=== PATIENT | male | born 1940 | race African-American/Black ===

== ENCOUNTER 2023-03-23 12:30 | Outpatient (CLI) | payer MEDICARE | END 2023-03-23 12:31 | disposition home or self-care (01) | LOC: LABBT 12:30 | PROVIDERS: ATTEND Orthopaedic Surgery | DX: Z01.818 Encounter for other preprocedural examination (principal); M17.11 Unilateral primary osteoarthritis, right knee | CPT/HCPCS: 71046; 93005; 93010 ==

== ENCOUNTER 2023-03-29 06:41 | Observation (INO) | payer MEDICARE ==
[2023-03-23 13:27] VITALS: BMI 28.8
[2023-03-23 14:22] LABS: Bilirubin Neg (Negative); Blood, Urine 10 (Negative); Clarity Clear (Clear); Glucose, Urine (Dipstick) Normal (Negative); Ketone, Urine Negative (Negative); Leukocyte Negative (Negative); Nitrite Negative (Negative); Protein, Urine (Dipstick) Negative (Neg-Trace); Specific Gravity, Urine 1.015 (1.005-1.030); Urobilinogen Normal mg/dL (Less than 2)
[2023-03-23 14:26] LABS: #Eosinphils 0.5 10x3/uL (0.0-0.5); #Monocytes 0.6 10x3/uL (0.0-1.1); #Neutrophils 3.9 10x3/uL (1.5-8.4); %Basophils 0.7 % (0.0-2.0); %Eosinophils 9.2 % (0.0-6.0); %Lymphocytes 12.3 % (18.0-47.0); %Monocytes 10.2 % (0.0-10.0); %Neutrophils 67.4 % (40.0-75.0); Hematocrit 42.8 % (38.8-50.0); Hemoglobin 14.1 g/dL (13.5-17.5); Mean Corpuscular HGB CONC 32.9 g/dL (32.0-36.0); Mean Corpuscular Hemoglobin 31.2 pg (27.0-33.0); Mean Corpuscular Volume 94.7 fl (81.2-95.1); Mean Platelet Volume 11.8 fl (7.4-10.4); Platelet Count 190 10x3/uL (150-450); RBC Distribution Width 12.6 % (11.5-14.5); Red Blood Cell (RBC) Count 4.52 10x6/uL (4.32-5.72); White Blood Cell (WBC) Count 5.8 10x3/uL (3.5-10.5)
[2023-03-23 14:49] LABS: Prothrombin Time 10.3 sec (9.5-12.1)
[2023-03-23 14:51] LABS: Anion Gap 13 mmol/L (10-20); BUN (Urea Nitrogen) 22 mg/dL (8.4-25.7); Calc. Creatinine Clearance 0 mL/min (70-130); Calcium 9.3 mg/dL (7.8-10.44); Carbon Dioxide 29 mmol/L (23-31); Chloride 102 mmol/L (98-107); Estimated GFR 57; Glucose 107 mg/dL (83-110); Potassium 4.2 mmol/L (3.5-5.1); Sodium 140 mmol/L (136-145)
[2023-03-29] MEDS ORDERED: Vancomycin (BATCH) 1.5 GM/300 ML BAG ONE (07:47)
[2023-03-29] MEDS ORDERED: Sodium Chloride 0.9% 100 ML ONE ×2 (07:47→09:18)
[2023-03-29] MEDS ORDERED: Tranexamic Acid 1,000 MG/10 ML VIAL ONE (07:47)
[2023-03-29] MEDS ORDERED: fentaNYL 50 mcg/mL 1 mL Vial ONE ×3 (08:51→12:24)
[2023-03-29] MEDS ORDERED: Midazolam HCl 2 mg/2 ml Vial ONE (08:52)
[2023-03-29] MEDS ORDERED: Bupivacaine PF 0.5% 30 ML VIAL ONE (08:52)
[2023-03-29] MEDS ORDERED: fentaNYL 50 mcg/mL 1 mL Vial SLOW IVP PRN (09:04)
[2023-03-29] MEDS ORDERED: HYDROcodone/Acetaminophen 10/325 mg Tablet PO PRN ×2 (09:15)
[2023-03-29] MEDS ORDERED: Ropivacaine 0.2% 550 ML 550 ML NERVE BLCK SCH (09:15)
[2023-03-29] MEDS ORDERED: Ondansetron PF 4 MG/2 ML Vial IVP PRN ×2 (09:15→10:00)
[2023-03-29] MEDS ORDERED: Promethazine HCl 25 MG/ML VIAL IM PRN ×3 (09:15→11:32)
[2023-03-29] MEDS ORDERED: Zolpidem Tartrate 5 MG TAB PO PRN ×2 (09:15→10:00)
[2023-03-29] MEDS ORDERED: traMADol HCl 50 MG TAB PO PRN ×2 (09:15)
[2023-03-29] MEDS ORDERED: CEFAZOLIN 2 GM VIAL ONE (09:18)
[2023-03-29] MEDS ORDERED: Bupivacaine 0.25% HCL 30 ML VIAL ONE (09:18)
[2023-03-29] MEDS ORDERED: PROPOFOL 20 ML ONE (09:29)
[2023-03-29] MEDS ORDERED: Dexamethasone 4 mg/ml Vial ONE (09:30)
[2023-03-29] MEDS ORDERED: Ondansetron PF 4 MG/2 ML Vial ONE ×2 (09:30→09:48)
[2023-03-29] MEDS ORDERED: Lidocaine 1% PF 5 ML VIAL ONE ×2 (09:30→09:48)
[2023-03-29] MEDS ORDERED: Bupivacaine HCl 0.5%/Epinephrine 1:200,000/PF 30 ml Vial ONE (09:48)
[2023-03-29] MEDS ORDERED: Dexamethasone 20 MG/5 ML VIAL ONE (09:48)
[2023-03-29] MEDS ORDERED: PROPOFOL 200 MG/20 ML VIAL ONE (09:48)
[2023-03-29] MEDS ORDERED: Acetaminophen 325 MG TAB PO PRN (10:00)
[2023-03-29] MEDS ORDERED: Tranexamic Acid 1,000 MG in Sodium Chloride 0.9% 100 ML IVPB SCH (10:00)
[2023-03-29] MEDS ORDERED: diphenhydrAMINE 25 MG CAP PO PRN (10:00)
[2023-03-29] MEDS ORDERED: fentaNYL PF 100 MCG/2 ML SYRINGE ONE (11:31)
[2023-03-29] MEDS ORDERED: Ondansetron HCl/PF 4 MG/2 ML Vial IVP PRN (11:32)
[2023-03-29] MEDS ORDERED: Non-Formulary Item 1 EACH (Lisinopril/Hydrochlorothiazide [Lisinopril-Hctz 20-12.5 Mg Tab PO SCH (12:00)
[2023-03-29] MEDS ORDERED: Simvastatin 40 MG TAB PO SCH ×2 (12:00)
[2023-03-29] MEDS ORDERED: NIFEDIPINE 60 MG PO SCH (12:00)
[2023-03-29] MEDS: Ketorolac Tromethamine 30 MG/ML VIAL IVP SCH ×2 (14:22→21:20)
[2023-03-29] MEDS: Hydrochlorothiazide 25 MG TAB PO SCH (14:28)
[2023-03-29] MEDS: Lisinopril 20 MG TAB PO SCH (14:28)
[2023-03-29] MEDS: NIFEdipine XL 60 MG ER.TAB PO SCH (14:28)
[2023-03-29] MEDS: Atorvastatin Calcium 20 MG TAB PO SCH (14:29)
[2023-03-29] MEDS: Sodium Chloride 0.9% 1,000 ML IV SCH (14:32)
[2023-03-29] MEDS: CEFAZOLIN 2 GM in Sodium Chloride 0.9% 100 ML IVPB SCH ×2 (14:36→21:26)
[2023-03-29] MEDS ORDERED: Vancomycin 1.5 GM in Sodium Chloride 0.9% 250 ML 300 ML IVPB SCH (18:00)
[2023-03-29] MEDS: Senokot S 8.6-50 MG TAB PO SCH (21:23)
[2023-03-29] MEDS: Aspirin 81 mg Enteric Coated Tablet PO SCH (21:23)
[2023-03-29] MEDS: Ferrous Gluconate 324 MG TAB PO SCH (21:23)
[2023-03-30 06:24] LABS: Hematocrit 33.7 % (42.0-52.0); Mean Corpuscular HGB CONC 32.6 g/dL (32.0-36.0); Mean Corpuscular Hemoglobin 31.4 pg (27.0-31.0); Mean Corpuscular Volume 96.3 fl (78.0-98.0); Mean Platelet Volume 10.9 fL (7.4-10.4); Platelet Count 175 10x3/uL (130-400); RBC Distribution Width 12.4 % (11.5-14.5); White Blood Cell (WBC) Count 8.3 10x3/uL (4.8-10.8)
[2023-03-30] MEDS: Ketorolac Tromethamine 30 MG/ML VIAL IVP SCH (06:30)
[2023-03-30] MEDS: Sodium Chloride 0.9% 1,000 ML IV SCH ×2 (06:36)
[2023-03-30 07:33] VITALS: TEMP 98.4
[2023-03-30] MEDS: Senokot S 8.6-50 MG TAB PO SCH (08:26)
[2023-03-30] MEDS: Ferrous Gluconate 324 MG TAB PO SCH (08:26)
[2023-03-30] MEDS: Aspirin 81 mg Enteric Coated Tablet PO SCH (08:26)
[2023-03-30] MEDS ORDERED: Multivitamin W/ Minerals 1 TAB PO SCH (09:00)
[2023-03-30] MEDS: Hydrochlorothiazide 25 MG TAB PO SCH (11:57)
[2023-03-30] MEDS: Lisinopril 20 MG TAB PO SCH (11:57)
[2023-03-30] MEDS: Atorvastatin Calcium 20 MG TAB PO SCH (11:58)
[2023-03-30] MEDS: NIFEdipine XL 60 MG ER.TAB PO SCH (11:58)
[2023-03-30 11:59] VITALS: BP 137/71
[2023-04-01] MEDS ORDERED: CeleCOXIB 100 MG CAP PO SCH (09:00)
== END 2023-03-30 12:01 | disposition home or self-care (01) ==
LOC: SDC 06:41 → SJJU 13:09
PROVIDERS: ADMIT Orthopaedic Surgery; ATTEND Orthopaedic Surgery
PROC: 0SRC0JZ Replacement of Right Knee Joint with Synthetic Substitute, Open Approach (ICD-10-PCS; principal; 2023-03-29)
DX: M17.11 Unilateral primary osteoarthritis, right knee (principal); M16.0 Bilateral primary osteoarthritis of hip; I10 Essential (primary) hypertension; E78.5 Hyperlipidemia, unspecified; Z79.899 Other long term (current) drug therapy
CPT/HCPCS: 27447; 80048; 81003; 85025; 85027; 85610; 86850; 86900; 86901; 87081; 97110; 97116 ×2; 97530 ×2; A4306; C1713; C1776; J3010; J3370; 36415; J1100; J1885; J2250; J2405; J2704; J2795; J3490; J7050; S0020